=== PATIENT | male | born 2000 | race Two or more races ===

== ENCOUNTER 2022-04-15 22:18 | Emergency (ER) | payer BC ==
[~2022-04-15] VITALS: Ht 172.7 cm; Wt 76.7 kg
[2022-04-15] MEDS ORDERED: BACTRIM 400-801 EACH PO (23:15)
[2022-04-15] MEDS ORDERED: OMEPRAZOLE-BIC1 EAC1 (23:29)
== END 2022-04-15 23:59 | disposition home or self-care (01) ==
LOC: ER 22:18
DX: S80.862A Insect bite (nonvenomous), left lower leg, initial encounter (principal); W57.XXXA Bitten or stung by nonvenomous insect and other nonvenomous arthropods, initial encounter; Y93.9 Activity, unspecified; Y92.9 Unspecified place or not applicable